=== PATIENT | female | born 1990 | race Caucasian/White ===

== ENCOUNTER 2021-11-18 11:48 | Inpatient (IN) ==
[2021-11-18] MEDS ORDERED: MEPERIDINE 50 MG/1 ML VIAL IV PRN (12:26)
[2021-11-18] MEDS ORDERED: ONDANSETRON 4 MG/2 ML VIAL IV PRN (12:26)
[2021-11-18] MEDS ORDERED: OXYTOCIN/LR 20 UNIT/1,000 ML BAG IV SCH (12:30)
[2021-11-18] MEDS: CLINDAMYCIN INJ 900 MG/50 ML PREMIX IV SCH ×2 (12:40→21:51)
[2021-11-18] MEDS: LACTATED RINGERS 1,000 ML IV SCH ×2 (12:40→21:36)
[2021-11-18 12:59] LABS: Basophils # 0.1 10*3/uL (0.0-0.2); Basophils % 0.4 % (0.0-0.8); Eosinophils # 0.2 10*3/uL (0.0-0.87); Eosinophils % 1.2 % (0.00-10.9); Hematocrit 36.9 VOL% (35.7-47.0); Hemoglobin 12.3 GM/DL (12.0-16.0); Immature Granulocytes % 0.7 %; Immature Granulocytes Absolute 0.08 #; Lymphocytes # 3.3 10*3/uL (1.4-4.0); Lymphocytes % 26.7 % (21.3-54.2); Mean Corpuscular HGB Conc 33.3 GM/DL (32-36); Mean Corpuscular Volume 86.8 FL (87-102); Mean Platelet Volume 11.7 FL (9.6-12.0); Monocytes % 5.9 % (1.7-12.7); Neutrophils % 65.1 % (38.7-73.9); Platelet Count 200 T/CUMM (130-400); Red Blood Count 4.25 MC/CUMM (3.8-5.5); Red Cell Distribution Width 13.6 % (9.3-17.3); White Blood Count 12.3 T/CUMM (4-12)
[2021-11-18 13:20] LABS: Bilirubin,Direct < 0.050 MG/DL (0.0-0.20); Uric Acid 5.6 MG/DL (2.6-6.0)
[2021-11-18 13:20] LABS: Alanine Aminotransferase 22 U/L (13-56); Albumin 2.5 G/DL (3.4-5.0); Alkaline Phosphatase 131 U/L (45-117); Aspartate Amino Transferase 29 U/L (0-37); Bilirubin,Total < 0.39 MG/DL (0.20-1.00); Blood Urea Nitrogen 7 MG/DL (7-18); Calcium 9.5 MG/DL (8.5-10.1); Carbon Dioxide 21 MMOL/L (21-32); Estimated Glom Filtration Rate 151 ML/MIN; Glucose 102 MG/DL (74-106); Osmolality,Calculated 270.8 MOS/KG (273-304); Potassium 3.7 MMOL/L (3.5-5.1); Sodium 137 MMOL/L (136-145); Total Protein 6.8 G/DL (6.4-8.2)
[2021-11-18 13:23] LABS: INR 0.9; PT Patient Result 10.3 SECS (10.5-12.0); Partial Thromboplastin Time 23.5 SECS (23.8-32.1)
[2021-11-18] MEDS ORDERED: PROMETHAZINE 25 MG/1 ML VIAL IM ONE (13:35)
[2021-11-18] MEDS ORDERED: NALOXONE 0.4 MG/ML VIAL IV PRN (13:35)
[2021-11-18] MEDS ORDERED: diphenhydrAMINE 50 MG/1 ML VIAL IV PRN ×2 (13:35)
[2021-11-18] MEDS ORDERED: LACTATED RINGERS 1,000 ML IV ONE (13:35)
[2021-11-18] MEDS ORDERED: hydrOXYzine HCL 25 MG/1 ML VIAL IM PRN (13:35)
[2021-11-18] MEDS ORDERED: ONDANSETRON 4 MG/2 ML VIAL IV ONE (13:35)
[2021-11-18] MEDS ORDERED: ePHEDrine 50 MG/ML VIAL IV PRN (13:35)
[2021-11-18] MEDS ORDERED: CITRIC ACID/SODIUM CITRATE 30 ML UDCUP PO ONE (13:42)
[2021-11-18] MEDS ORDERED: fentaNYL 2 MCG/ROPIV 0.2% EPID 100 ML EPIDURAL SCH (14:00)
[2021-11-18] MEDS ORDERED: FAMOTIDINE 20 MG/2 ML VIAL IV ONE (16:08)
[2021-11-18 17:47] LABS: Bacteria,Urine Occasional /HPF (Few); Bilirubin,Urine Negative (Negative); Blood, Urine Small mg/dL (Negative); Glucose,Urine (UA) Negative (Negative); Hyaline Casts,Urine 3 /LPF (0-3); Ketones,Urine 5 mg/dL (Negative); Mucus,Urine Few /LPF (Occasional); Nitrite,Urine Negative (Negative); Protein,Urine 30 MG/DL; RBC,Urine 24 /HPF (0-4); Urine Appearance CLEAR (Clear); Urine Color Yellow (Yellow); Urine Specific Gravity 1.018 (1.001-1.035); Urine Urobilinogen < 2.0 EU/DL (<2.0)
[2021-11-18] MEDS ORDERED: miSOPROStoL 200 MCG TABLET ONE (20:55)
[2021-11-18] MEDS ORDERED: TRANEXAMIC ACID 1,000 MG/10 ML VIAL ONE (20:55)
[2021-11-18] MEDS ORDERED: CARBOPROST TROMETHAMINE 250 MCG/ML AMP IM ONE (20:56)
[2021-11-18] MEDS ORDERED: METHYLERGONOVINE 0.2 MG/1 ML AMP ONE (20:56)
[2021-11-18] MEDS ORDERED: LEVOFLOXACIN INJ 500 MG/100 ML PREMIX IV ONE (23:44)
[2021-11-18] MEDS ORDERED: OXYTOCIN/LR 30 UNIT/1,000 ML BAG IV PRN (23:47)
[2021-11-18] MEDS ORDERED: OXYTOCIN 10 UNIT/ML VIAL ONE (23:58)
[2021-11-18] MEDS ORDERED: OXYTOCIN 10 UNIT/ML VIAL IM PRN (23:59)
[2021-11-19] MEDS ORDERED: ONDANSETRON 4 MG/2 ML VIAL ONE (00:23)
[2021-11-19] MEDS ORDERED: LIDOCAINE MPF 2% /EPI 20 ML VIAL ONE (00:23)
[2021-11-19] MEDS ORDERED: KETOROLAC 30 MG/1 ML VIAL ONE (00:24)
[2021-11-19] MEDS ORDERED: METOCLOPRAMIDE 10 MG/2 ML VIAL ONE (00:54)
[2021-11-19] MEDS ORDERED: ONDANSETRON 4 MG/2 ML VIAL IV PRN (01:01)
[2021-11-19] MEDS ORDERED: RHO(D) IMMUNE GLOBULIN 300 MCG SYRINGE IM ONE (01:01)
[2021-11-19] MEDS ORDERED: MAGNESIUM HYDROXIDE SUSP 30 ML UDCUP PO PRN (01:01)
[2021-11-19] MEDS ORDERED: OXYTOCIN/LR 20 UNIT/1,000 ML BAG IV ONE ×2 (01:01→11:14)
[2021-11-19] MEDS ORDERED: GLUCAGON 1 MG VIAL IM PRN ×2 (01:01→01:22)
[2021-11-19] MEDS ORDERED: ACETAMINOPHEN 325 MG TABLET PO PRN (01:01)
[2021-11-19] MEDS ORDERED: DEXTROSE 50% 25 GM/50 ML SYRINGE IV PRN (01:07)
[2021-11-19] MEDS ORDERED: DEXTROSE 50% 25 GM/50 ML VIAL IV PRN (01:22)
[2021-11-19] MEDS ORDERED: LACTATED RINGERS 1,000 ML IV SCH ×2 (01:30→11:14)
[2021-11-19] MEDS: INSULIN REGULAR 100 UNIT/ML SUBCUT SCH ×3 (03:26→23:00)
[2021-11-19] MEDS: ACETAMINOPHEN 500 MG TABLET PO PRN ×2 (03:30→14:12)
[2021-11-19] MEDS: CLINDAMYCIN INJ 900 MG/50 ML PREMIX IV SCH ×2 (06:24→14:13)
[2021-11-19] MEDS: KETOROLAC 30 MG/1 ML VIAL IV SCH ×3 (08:04→23:01)
[2021-11-19] MEDS: DOCUSATE SODIUM 100 MG CAPSULE PO SCH ×2 (09:48→20:28)
[2021-11-19] MEDS: MULTIVITAMIN (PRENATAL) TABLET PO SCH (09:48)
[2021-11-19 12:21] LABS: Basophils % 0.2 % (0.0-0.8); Eosinophils # 0.1 10*3/uL (0.0-0.87); Eosinophils % 1.1 % (0.00-10.9); Hematocrit 31.4 VOL% (35.7-47.0); Hemoglobin 10.4 GM/DL (12.0-16.0); Immature Granulocytes % 0.6 %; Immature Granulocytes Absolute 0.06 #; Lymphocytes # 2.4 10*3/uL (1.4-4.0); Lymphocytes % 22.8 % (21.3-54.2); Mean Corpuscular HGB Conc 33.1 GM/DL (32-36); Mean Corpuscular Volume 87.7 FL (87-102); Mean Platelet Volume 11.4 FL (9.6-12.0); Monocytes % 5.8 % (1.7-12.7); Neutrophils % 69.5 % (38.7-73.9); Platelet Count 182 T/CUMM (130-400); Red Blood Count 3.58 MC/CUMM (3.8-5.5); Red Cell Distribution Width 13.8 % (9.3-17.3); White Blood Count 10.4 T/CUMM (4-12)
[2021-11-19] MEDS ORDERED: KETOROLAC 30 MG/1 ML VIAL IV SCH (20:00)
[2021-11-19] MEDS ORDERED: KETOROLAC 30 MG/1 ML VIAL IM ONE (20:17)
[2021-11-19] MEDS ORDERED: oxyCODONE/ACETAMINOPHEN 5-325 MG TABLET PO PRN ×2 (20:17)
[2021-11-19] MEDS: SIMETHICONE CHEW 80 MG TABLET PO PRN (20:28)
[2021-11-19] MEDS ORDERED: DOCUSATE SODIUM 100 MG CAPSULE PO SCH (21:00)
[2021-11-20] MEDS: oxyCODONE/ACETAMINOPHEN 5-325 MG TABLET PO PRN ×5 (01:18→21:26)
[2021-11-20] MEDS: INSULIN REGULAR 100 UNIT/ML SUBCUT SCH ×2 (01:23→05:19)
[2021-11-20] MEDS: IBUPROFEN 800 MG TABLET PO PRN ×2 (05:20→15:05)
[2021-11-20 06:02] LABS: Basophils % 0.2 % (0.0-0.8); Eosinophils # 0.2 10*3/uL (0.0-0.87); Eosinophils % 1.5 % (0.00-10.9); Hematocrit 29.7 VOL% (35.7-47.0); Hemoglobin 9.6 GM/DL (12.0-16.0); Immature Granulocytes % 0.6 %; Immature Granulocytes Absolute 0.06 #; Lymphocytes # 3.2 10*3/uL (1.4-4.0); Lymphocytes % 32.6 % (21.3-54.2); Mean Corpuscular HGB Conc 32.3 GM/DL (32-36); Mean Corpuscular Volume 89.2 FL (87-102); Mean Platelet Volume 11.6 FL (9.6-12.0); Monocytes % 6.9 % (1.7-12.7); Neutrophils % 58.2 % (38.7-73.9); Platelet Count 194 T/CUMM (130-400); Red Blood Count 3.33 MC/CUMM (3.8-5.5); White Blood Count 9.7 T/CUMM (4-12)
[2021-11-20] MEDS: MULTIVITAMIN (PRENATAL) TABLET PO SCH (08:49)
[2021-11-20] MEDS: DOCUSATE SODIUM 100 MG CAPSULE PO SCH ×2 (08:50→20:55)
[2021-11-20] MEDS: SIMETHICONE CHEW 80 MG TABLET PO PRN ×2 (08:50→22:15)
[2021-11-20] MEDS ORDERED: METOCLOPRAMIDE 10 MG TABLET PO SCH ×2 (09:00)
[2021-11-21] MEDS: oxyCODONE/ACETAMINOPHEN 5-325 MG TABLET PO PRN ×3 (01:58→12:35)
[2021-11-21] MEDS: MULTIVITAMIN (PRENATAL) TABLET PO SCH (08:53)
[2021-11-21] MEDS: DOCUSATE SODIUM 100 MG CAPSULE PO SCH (08:53)
[2021-11-21 12:02] VITALS: BP 140/88
== END 2021-11-21 14:52 | disposition home or self-care (01) | DRG 540 ==
LOC: N.LDOUT 11:48 → N.LD 11:49 → N.OB 11-19 11:04
PROVIDERS: ADMIT Obstetrics & Gynecology; ATTEND Obstetrics & Gynecology
PROC: LDCSECT (ICD-10-PCS; 2021-11-19)